=== PATIENT | male | born 1985 | race African-American/Black ===

== ENCOUNTER 2021-03-26 10:08 | Emergency (ER) | payer SELFPAY ==
[~2021-03-26] VITALS: Ht 177.8 cm; Wt 86.0 kg
[2021-03-26 10:09] VITALS: BP 140/87
[2021-03-26] MEDS ORDERED: HALOPERIDOL LACTATE 5MG/ML VIAL IM STA (10:33)
[2021-03-26] MEDS ORDERED: DIPHENHYDRAMINE 50MG/ML VIAL IM STA (10:33)
[2021-03-26] MEDS ORDERED: LORAZEPAM 2MG/ML CPJ IM STA (10:33)
[2021-03-26 11:38] LABS: BASOPHILS % 0.2 % (0.0-2.0); EOSINOPHILS % 1.2 % (0.0-5.0); HEMATOCRIT. 45.4 % (42.0-52.0); HEMOGLOBIN. 15.4 g/dL (14.0-18.0); LYMPHOCYTES % 18.6 % (20.0-50.0); MEAN CORPUSCULAR HEMOGLOBIN 30.9 pg (28.0-32.0); MEAN CORPUSCULAR VOLUME 91.2 fL (80.0-94.0); MEAN PLATELET VOLUME 9.4 fl (7.4-10.4); MONOCYTES % 5.1 % (2.0-8.0); NEUTROPHILS % 74.9 % (40.0-76.0); PLATELET 228 x1000/uL (130-400); RED BLOOD CELL COUNT 4.98 mill/uL (4.7-6.1)
[2021-03-26 11:51] LABS: CHLORIDE 106 mEq/L (98-107)
[2021-03-26 11:57] LABS: ETHANOL BLOOD < 10 mg/dL
== END 2021-03-26 12:44 ==
LOC: ER 10:08
DX: R45.1 Restlessness and agitation (principal); F91.8 Other conduct disorders; R07.81 Pleurodynia; F41.9 Anxiety disorder, unspecified; R56.9 Unspecified convulsions
CPT/HCPCS: 36415; 71045; 80053; 80307; 80320; 80329; 85025; 96372; 99284; J1200; J1630; J2060; G0480

== ENCOUNTER 2021-04-02 15:00 | Emergency (ER) | payer OTHER ==
[~2021-04-02] VITALS: Ht 172.7 cm; Wt 84.0 kg
[2021-04-02 15:03] VITALS: BP 122/75
[2021-04-02] MEDS ORDERED: LORAZEPAM 1MG TABLET PO STA (15:38)
[2021-04-02] MEDS ORDERED: LORAZEPAM 2MG/ML CPJ IM STA (15:43)
[2021-04-02] MEDS ORDERED: LORA-250 PO (16:52)
== END 2021-04-02 17:38 | disposition home or self-care (01) ==
LOC: ER 15:00
DX: F41.9 Anxiety disorder, unspecified (principal); G40.909 Epilepsy, unspecified, not intractable, without status epilepticus; Z88.6 Allergy status to analgesic agent
CPT/HCPCS: 93005; 96372; 99283; J2060

== ENCOUNTER 2021-12-22 11:34 | Emergency (ER) | payer OTHER ==
[~2021-12-22] VITALS: Ht 180.3 cm; Wt 91.0 kg
[~2021-12-22 11:34] MED LIST: LORA-250 PO
[2021-12-22 11:35] VITALS: BP 124/80
[2021-12-22] MEDS ORDERED: LEVETIRACETAM 100MG/ML ORAL SYR PO ONE (12:00)
[2021-12-22] MEDS ORDERED: LEVETIRACETAM 500MG/5ML CUP PO NR (12:15)
== END 2021-12-22 12:27 | disposition home or self-care (01) ==
LOC: ER 11:34
DX: G40.909 Epilepsy, unspecified, not intractable, without status epilepticus (principal); F41.9 Anxiety disorder, unspecified; Z91.14 Patient's other noncompliance with medication regimen; Z88.6 Allergy status to analgesic agent
CPT/HCPCS: 99283

== ENCOUNTER 2022-10-10 23:56 | Emergency (ER) | payer SELFPAY ==
[~2022-10-10] VITALS: Ht 175.3 cm; Wt 82.0 kg
[2022-10-10 23:59] VITALS: BP 126/73; PULSE 74; RESP 16; TEMP 98.3; O2SAT 96
[2022-10-11] MEDS ORDERED: LEVETIRACETAM 1000MG PREMIX 100 ML IV ONE (00:15)
[2022-10-11] MEDS ORDERED: OLANZAPINE 5MG TABLET PO ONE (00:15)
[2022-10-11] MEDS ORDERED: KEPP500 MT (03:12)
== END 2022-10-11 05:04 | disposition home or self-care (01) ==
LOC: ER 10-11 01:03
DX: R56.9 Unspecified convulsions (principal); F41.9 Anxiety disorder, unspecified; F20.9 Schizophrenia, unspecified
CPT/HCPCS: 99284; 96365; 73100; J1953

== ENCOUNTER 2022-10-11 05:15 | Emergency (ER) | payer MEDICAID ==
[~2022-10-11] VITALS: Ht 175.3 cm; Wt 83.0 kg
[~2022-10-11 05:15] MED LIST changes: +KEPP500 MT
[2022-10-11 05:21] VITALS: O2SAT 100
[2022-10-11 13:18] LABS: BASOPHILS % 0.5 % (0.0-2.0); EOSINOPHILS % 3.2 % (0.0-5.0); HEMATOCRIT. 46.7 % (42.0-52.0); HEMOGLOBIN. 15.5 g/dL (14.0-18.0); LYMPHOCYTES % 47.9 % (20.0-50.0); MEAN CORPUSCULAR HEMOGLOBIN 30.5 pg (28.0-32.0); MEAN CORPUSCULAR HGB CONC 33.2 g/dL (31.0-37.0); MEAN CORPUSCULAR VOLUME 91.6 fL (80.0-94.0); MEAN PLATELET VOLUME 9.4 fl (7.4-10.4); MONOCYTES % 8.8 % (2.0-8.0); NEUTROPHILS % 39.6 % (40.0-76.0); PLATELET 224 x1000/uL (130-400); RED CELL DISTRIBUTION WIDTH 13.5 % (11.6-14.6); WHITE BLOOD COUNT 4.8 x1000/uL (4.5-11.0)
[2022-10-11 13:21] LABS: CHLORIDE 107 mEq/L (98-107); INDEX HEMOLYSI 1 (1-3); INDEX ICTERIC 1 (1-4); INDEX LIPEMIC 1 (1-3); SODIUM 139 mEq/L (136-145)
[2022-10-11 13:23] LABS: CALCIUM 8.8 mg/dL (8.5-10.1)
[2022-10-11 13:28] LABS: ACETAMINOPHEN < 2 ug/mL (10-30); ALANINE AMINOTRANSFERASE 18 IU/L (13-61); ALBUMIN 3.9 g/dL (3.4-5.0); ASPARTATE AMINOTRANSFERASE 5 IU/L (15-37); BILIRUBIN TOTAL 0.3 mg/dL (0.1-1.0); CARBON DIOXIDE 29 mEq/L (21-32); ETHANOL BLOOD < 10 mg/dL (-10); UREA NITROGEN BLOOD 14 mg/dL (7-21)
[2022-10-11 15:29] LABS: GLUCOSE 87 mg/dL (70-105)
[2022-10-11 19:02] LABS: *AMPHETAMINES SCREEN URINE NEGATIVE (NEGATIVE); *BARBITURATES SCREEN URINE NEGATIVE (NEGATIVE); *BENZODIAZEPINES SCREEN URINE NEGATIVE (NEGATIVE); *COCAINE SCREEN URINE NEGATIVE (NEGATIVE); CANNABINOID URINE SCREEN NEGATIVE (NEGATIVE); ECSTASY MDMA SCREEN URINE NEGATIVE (NEGATIVE); METHADONE URINE SCREEN NEGATIVE (NEGATIVE); OPIATES URINE SCREEN NEGATIVE (NEGATIVE); PHENCYCLIDINE URINE SCREEN NEGATIVE (NEGATIVE)
[2022-10-11] MEDS: LEVETIRACETAM 250MG TABLET PO SCH (21:40)
[2022-10-12 09:00] VITALS: BP 118/74; PULSE 73; RESP 18; TEMP 98.2
[2022-10-12] MEDS: LEVETIRACETAM 250MG TABLET PO SCH (09:00)
== END 2022-10-12 12:50 | disposition home or self-care (01) ==
LOC: ER 05:15
DX: R45.851 Suicidal ideations (principal); F41.9 Anxiety disorder, unspecified; F20.9 Schizophrenia, unspecified; F17.200 Nicotine dependence, unspecified, uncomplicated; Z20.822 Contact with and (suspected) exposure to COVID-19
CPT/HCPCS: 80053; 80305; 80307; 80329; 80320; 85025; 36415; 99285; 87426; C9803; G0480

== ENCOUNTER 2024-01-14 10:10 | Emergency (ER) | payer OTHER, MEDICAID ==
[~2024-01-14] VITALS: Ht 182.9 cm; Wt 100.0 kg
[2024-01-14 10:13] VITALS: O2SAT 100
[2024-01-14] MEDS ORDERED: METHOCARBAMOL 750MG TABLET PO SCH (10:45)
[2024-01-14] MEDS: ACETAMINOPHEN 325MG TABLET PO ONE (10:57)
[2024-01-14] MEDS: METHOCARBAMOL 500MG TABLET PO SCH (10:57)
[2024-01-14] MEDS: LIDOCAINE 5% PATCH TOP SCH (10:58)
[2024-01-14] MEDS ORDERED: LIDO700A15 TP (11:41)
[2024-01-14] MEDS ORDERED: TOPUD PO (11:41)
[2024-01-14] MEDS ORDERED: METH-653 MT (11:41)
[2024-01-14] MEDS ORDERED: KEPP500 MT (11:41)
[2024-01-14 11:47] VITALS: BP 111/66; PULSE 87; RESP 16; TEMP 37.05852; O2SAT 100
[2024-01-14] MEDS: LEVETIRACETAM 500MG TABLET PO ONE (11:48)
[2024-01-14] MEDS: DIAZEPAM 2 MG TABLET PO ONE (11:48)
== END 2024-01-14 11:50 ==
LOC: ER 10:10
DX: M47.812 Spondylosis without myelopathy or radiculopathy, cervical region (principal); F41.9 Anxiety disorder, unspecified; F20.9 Schizophrenia, unspecified; F15.10 Other stimulant abuse, uncomplicated; Z87.891 Personal history of nicotine dependence; Z88.6 Allergy status to analgesic agent; Y04.0XXA Assault by unarmed brawl or fight, initial encounter; Y93.89 Activity, other specified; Y92.89 Other specified places as the place of occurrence of the external cause; Y99.8 Other external cause status
CPT/HCPCS: 71045; 72040; 99284

== ENCOUNTER 2024-01-15 14:03 | Emergency (ER) | payer MEDICAID, OTHER ==
[~2024-01-15] VITALS: Ht 172.7 cm; Wt 91.0 kg
[~2024-01-15 14:03] MED LIST changes: +LIDO700A15 TP; +METH-653 MT; +TOPUD PO
[2024-01-15 14:09] VITALS: O2SAT 90
[2024-01-15 17:00] VITALS: BP 125/80; PULSE 80; RESP 14; TEMP 36.44736; O2SAT 95
[2024-01-15 17:41] LABS: CHLORIDE 107 mEq/L (98-107); POTASSIUM 3.5 mEq/L (3.5-5.1); SODIUM 137 mEq/L (136-145)
[2024-01-15 17:42] LABS: CALCIUM 9.5 mg/dL (8.7-10.4); CARBON DIOXIDE 25 mEq/L (21-32)
[2024-01-15 17:44] LABS: BASOPHILS % 0.5 % (0.0-2.0); HEMATOCRIT. 46.2 % (42.0-52.0); HEMOGLOBIN. 15.3 g/dL (14.0-18.0); LYMPHOCYTES % 40.4 % (20.0-50.0); MEAN CORPUSCULAR HEMOGLOBIN 30.8 pg (28.0-32.0); MEAN CORPUSCULAR HGB CONC 33.1 g/dL (31.0-37.0); MEAN CORPUSCULAR VOLUME 93.3 fL (80.0-94.0); MEAN PLATELET VOLUME 9.4 fl (7.4-10.4); MONOCYTES % 7.9 % (2.0-8.0); NEUTROPHILS % 49.2 % (40.0-76.0); PLATELET 248 x1000/uL (130-400); RED BLOOD CELL COUNT 4.95 mill/uL (4.7-6.1); RED CELL DISTRIBUTION WIDTH 13.5 % (11.6-14.6); WHITE BLOOD COUNT 6.4 x1000/uL (4.5-11.0)
[2024-01-15 17:47] LABS: GLUCOSE 72 mg/dL (70-105); UREA NITROGEN BLOOD 12 mg/dL (9-23)
[2024-01-15 17:49] LABS: ACETAMINOPHEN 3 ug/mL (10-30)
[2024-01-15 17:51] LABS: ETHANOL BLOOD < 10 mg/dL (<10)
[2024-01-15] MEDS: LEVETIRACETAM 500MG PREMIX 100 ML IV ONE (18:39)
[2024-01-15] MEDS: LEVETIRACETAM 500MG TABLET PO ONE (19:01)
== END 2024-01-15 19:24 ==
LOC: ER 14:30
DX: G40.909 Epilepsy, unspecified, not intractable, without status epilepticus (principal); F41.9 Anxiety disorder, unspecified; F15.10 Other stimulant abuse, uncomplicated; Z88.6 Allergy status to analgesic agent; Z91.148 Patient's other noncompliance with medication regimen for other reason
CPT/HCPCS: 80048; 80307; 80329; 80320; 85025; 36415; 70450; 99284; Z7610; G0480

== ENCOUNTER 2024-03-20 14:59 | Emergency (ER) | payer MEDICAID, OTHER ==
[~2024-03-20] VITALS: Ht 185.4 cm; Wt 80.0 kg
[2024-03-20 15:01] VITALS: BP 117/79; PULSE 69; RESP 18; TEMP 36.9; O2SAT 97
[2024-03-20] MEDS: NITROFURANTOIN 100MG M/M CAPSULE PO ONE (17:11)
[2024-03-20 17:38] LABS: CLARITY URINE CLEAR (CLEAR); COLOR URINE YELLOW (YELLOW); GLUCOSE URINE NEGATIVE (NEGATIVE); KETONES URINE NEGATIVE (NEGATIVE); LEUKOCYTE ESTERASE URINE NEGATIVE (NEGATIVE); NITRITE URINE NEGATIVE (NEGATIVE); OCCULT BLOOD URINE NEGATIVE (NEGATIVE); PROTEIN URINE NEGATIVE (NEGATIVE); UROBILINOGEN URINE 0.2 E.U./dL (0.2-1.0)
[2024-03-20 17:53] LABS: *AMPHETAMINES SCREEN URINE PRESUMPTIVE POSITIVE (NEGATIVE); *BARBITURATES SCREEN URINE NEGATIVE (NEGATIVE); *BENZODIAZEPINES SCREEN URINE NEGATIVE (NEGATIVE); *COCAINE SCREEN URINE NEGATIVE (NEGATIVE); METHADONE URINE SCREEN NEGATIVE (NEGATIVE); OPIATES URINE SCREEN NEGATIVE (NEGATIVE); PHENCYCLIDINE URINE SCREEN NEGATIVE (NEGATIVE)
[2024-03-20 17:54] LABS: CANNABINOID URINE SCREEN PRESUMPTIVE POSITIVE (NEGATIVE); ECSTASY MDMA SCREEN URINE NEGATIVE (NEGATIVE)
[2024-03-20 18:32] LABS: EOSINOPHILS % 2.4 % (0.0-5.0); HEMATOCRIT. 43.5 % (42.0-52.0); HEMOGLOBIN. 14.4 g/dL (14.0-18.0); LYMPHOCYTES % 32.1 % (20.0-50.0); MEAN CORPUSCULAR HEMOGLOBIN 31.2 pg (28.0-32.0); MEAN CORPUSCULAR HGB CONC 33.1 g/dL (31.0-37.0); MEAN CORPUSCULAR VOLUME 94.3 fL (80.0-94.0); MONOCYTES % 7.3 % (2.0-8.0); NEUTROPHILS % 57.2 % (40.0-76.0); PLATELET 215 x1000/uL (130-400); RED BLOOD CELL COUNT 4.61 mill/uL (4.7-6.1); RED CELL DISTRIBUTION WIDTH 13.9 % (11.6-14.6); WHITE BLOOD COUNT 6.3 x1000/uL (4.5-11.0)
[2024-03-20 19:03] LABS: CHLORIDE 109 mEq/L (98-107); POTASSIUM 3.8 mEq/L (3.5-5.1); SODIUM 140 mEq/L (136-145)
[2024-03-20 19:04] LABS: CALCIUM 8.8 mg/dL (8.7-10.4); CARBON DIOXIDE 27 mEq/L (21-32)
[2024-03-20 19:09] LABS: CREATININE 0.9 mg/dL (0.6-1.3); GLUCOSE 99 mg/dL (70-105); UREA NITROGEN BLOOD 10 mg/dL (9-23)
[2024-03-20 19:16] LABS: ETHANOL BLOOD < 10 mg/dL (<10)
[2024-03-20 19:23] VITALS: TEMP 98.5
[2024-03-20] MEDS: ACETAMINOPHEN 325MG TABLET PO ONE (19:23)
[2024-03-20] MEDS ORDERED: LEVETIRACETAM 500MG TABLET PO ONE (20:00)
[2024-03-20] MEDS ORDERED: LEVETIRACETAM 1000MG PREMIX 100 ML IV ONE (20:00)
== END 2024-03-20 20:06 ==
LOC: ER 14:59
DX: R06.02 Shortness of breath (principal); F20.9 Schizophrenia, unspecified; F41.9 Anxiety disorder, unspecified; Z88.6 Allergy status to analgesic agent; Z79.899 Other long term (current) drug therapy
CPT/HCPCS: 80305; 80048; 81003; 80320; 85025; 36415; 99283; Z7610; G0480

== ENCOUNTER 2024-08-12 21:57 | Emergency (ER) | payer MEDICAID ==
[~2024-08-12] VITALS: Ht 182.9 cm; Wt 82.0 kg
[~2024-08-12 21:57] MED LIST changes: +LIDO-53 TP; -LIDO700A15 TP
[2024-08-12 22:05] VITALS: O2SAT 99
[2024-08-12 23:22] LABS: BASOPHILS % 0.6 % (0.0-2.0); EOSINOPHILS % 1.4 % (0.0-5.0); HEMATOCRIT. 43.8 % (42.0-52.0); HEMOGLOBIN. 14.4 g/dL (14.0-18.0); LYMPHOCYTES % 30.6 % (20.0-50.0); MEAN PLATELET VOLUME 9.2 fl (7.4-10.4); MONOCYTES % 7.6 % (2.0-8.0); NEUTROPHILS % 59.8 % (40.0-76.0); PLATELET 252 x1000/uL (130-400); RED BLOOD CELL COUNT 4.87 mill/uL (4.7-6.1); RED CELL DISTRIBUTION WIDTH 13.9 % (11.6-14.6)
[2024-08-12 23:31] LABS: CREATININE 1.1 mg/dL (0.6-1.3)
[2024-08-12 23:32] LABS: ETHANOL BLOOD < 10 mg/dL (<10); TROPONIN I HIGH SENSITIVITY < 4 ng/L (3.0-53); UREA NITROGEN BLOOD 10 mg/dL (9-23)
[2024-08-12 23:33] LABS: ASPARTATE AMINOTRANSFERASE 9 IU/L (<34)
[2024-08-12 23:34] LABS: BILIRUBIN DIRECT 0.2 mg/dL (<=3.0); BILIRUBIN TOTAL 0.6 mg/dL (0.1-1.0); PROTEIN TOTAL 7.1 g/dL (6.0-8.3)
[2024-08-13] MEDS: ACETAMINOPHEN 325MG TABLET PO NR (01:02)
[2024-08-13] MEDS: POTASSIUM CHLORIDE 20MEQ/PACKET PO NR (01:02)
[2024-08-13 09:12] LABS: CLARITY URINE CLEAR (CLEAR); COLOR URINE YELLOW (YELLOW); GLUCOSE URINE NEGATIVE (NEGATIVE); KETONES URINE TRACE (NEGATIVE); LEUKOCYTE ESTERASE URINE NEGATIVE (NEGATIVE); NITRITE URINE NEGATIVE (NEGATIVE); OCCULT BLOOD URINE NEGATIVE (NEGATIVE); PH URINE 6.5 (4.5-8.0); PROTEIN URINE TRACE (NEGATIVE); SPECIFIC GRAVITY URINE 1.021 (1.005-1.030); UROBILINOGEN URINE 1.0 E.U./dL (0.2-1.0)
[2024-08-13 09:15] LABS: MUCUS URINE 1+ /lpf (NONE/TRACE)
[2024-08-13 09:16] LABS: BACTERIA URINE TRACE; SQUAMOUS EPITHELIAL CELL URINE RARE /lpf (RARE/1+)
[2024-08-13 09:17] LABS: AMORPHOUS SEDIMENT URINE 1+ /lpf; RBC URINE NONE SEEN /hpf (0-2); WBC URINE 0-2 /hpf (0-2)
[2024-08-13] MEDS: LEVETIRACETAM 250MG TABLET PO SCH (11:50)
[2024-08-13 12:40] LABS: *AMPHETAMINES SCREEN URINE PRESUMPTIVE POSITIVE (NEGATIVE); *BARBITURATES SCREEN URINE NEGATIVE (NEGATIVE); *BENZODIAZEPINES SCREEN URINE NEGATIVE (NEGATIVE); *COCAINE SCREEN URINE NEGATIVE (NEGATIVE); METHADONE URINE SCREEN NEGATIVE (NEGATIVE)
[2024-08-13 12:41] LABS: CANNABINOID URINE SCREEN PRESUMPTIVE POSITIVE (NEGATIVE); ECSTASY MDMA SCREEN URINE CONF.TEST INDICATED (NEGATIVE); OPIATES URINE SCREEN NEGATIVE (NEGATIVE); PHENCYCLIDINE URINE SCREEN NEGATIVE (NEGATIVE)
[2024-08-13 14:37] VITALS: BP 119/78; PULSE 95; RESP 18; TEMP 36.8; O2SAT 99
== END 2024-08-13 14:58 | disposition home or self-care (01) ==
LOC: ER 21:57
DX: R45.851 Suicidal ideations (principal); R07.89 Other chest pain; E87.6 Hypokalemia; F17.200 Nicotine dependence, unspecified, uncomplicated; F12.90 Cannabis use, unspecified, uncomplicated; R56.9 Unspecified convulsions; Z88.6 Allergy status to analgesic agent; Z79.899 Other long term (current) drug therapy
CPT/HCPCS: 80076; 80048; 80307; 80329; 80320; 83880; 85025; 84484; 36415; 71045; 93005; 99285; 80305; 81003; Z7610 ×2; G0480

== ENCOUNTER 2024-08-16 14:07 | Emergency (ER) | payer MEDICAID ==
[~2024-08-16] VITALS: Ht 175.3 cm; Wt 85.0 kg
[2024-08-16 14:19] VITALS: O2SAT 99
[2024-08-16 14:55] LABS: BASOPHILS % 0.7 % (0.0-2.0); EOSINOPHILS % 3.1 % (0.0-5.0); HEMATOCRIT. 44.0 % (42.0-52.0); HEMOGLOBIN. 14.5 g/dL (14.0-18.0); LYMPHOCYTES % 39.0 % (20.0-50.0); MEAN PLATELET VOLUME 9.4 fl (7.4-10.4); MONOCYTES % 6.7 % (2.0-8.0); NEUTROPHILS % 50.5 % (40.0-76.0); PLATELET 261 x1000/uL (130-400); RED BLOOD CELL COUNT 4.85 mill/uL (4.7-6.1); RED CELL DISTRIBUTION WIDTH 14.0 % (11.6-14.6)
[2024-08-16 15:10] LABS: CLARITY URINE CLEAR (CLEAR); COLOR URINE YELLOW (YELLOW); GLUCOSE URINE NEGATIVE (NEGATIVE); KETONES URINE TRACE (NEGATIVE); LEUKOCYTE ESTERASE URINE NEGATIVE (NEGATIVE); NITRITE URINE NEGATIVE (NEGATIVE); OCCULT BLOOD URINE NEGATIVE (NEGATIVE); PH URINE 6.5 (4.5-8.0); PROTEIN URINE TRACE (NEGATIVE); SPECIFIC GRAVITY URINE 1.027 (1.005-1.030); UROBILINOGEN URINE 1.0 E.U./dL (0.2-1.0)
[2024-08-16 15:17] LABS: CREATININE 1.0 mg/dL (0.6-1.3); UREA NITROGEN BLOOD 12 mg/dL (9-23)
[2024-08-16 15:18] LABS: ETHANOL BLOOD < 10 mg/dL (<10)
[2024-08-16 15:25] LABS: *AMPHETAMINES SCREEN URINE PRESUMPTIVE POSITIVE (NEGATIVE); *BENZODIAZEPINES SCREEN URINE NEGATIVE (NEGATIVE)
[2024-08-16 15:26] LABS: *BARBITURATES SCREEN URINE NEGATIVE (NEGATIVE); *COCAINE SCREEN URINE NEGATIVE (NEGATIVE); CANNABINOID URINE SCREEN PRESUMPTIVE POSITIVE (NEGATIVE); ECSTASY MDMA SCREEN URINE CONF.TEST INDICATED (NEGATIVE); METHADONE URINE SCREEN NEGATIVE (NEGATIVE); OPIATES URINE SCREEN NEGATIVE (NEGATIVE); PHENCYCLIDINE URINE SCREEN NEGATIVE (NEGATIVE)
[2024-08-16 16:03] LABS: BACTERIA URINE 1+; CALCIUM OXALATE CRYSTALS URINE 1+ /lpf; RBC URINE 0-2 /hpf (0-2); SQUAMOUS EPITHELIAL CELL URINE FEW /lpf (RARE/1+); WBC URINE 0-2 /hpf (0-2)
[2024-08-16 16:04] LABS: MUCUS URINE 1+ /lpf (NONE/TRACE)
[2024-08-16] MEDS: ZIPRASIDONE MESYLATE 20MG/VIAL IM ONE (21:25)
[2024-08-16] MEDS: LEVETIRACETAM 500MG TABLET PO SCH (21:25)
[2024-08-17] MEDS: OLANZAPINE 5MG TABLET PO SCH (11:45)
[2024-08-17 16:00] VITALS: TEMP 37
[2024-08-17 17:16] VITALS: BP 122/79; PULSE 72; RESP 18; O2SAT 100
== END 2024-08-17 17:30 ==
LOC: ER 14:07
DX: R45.851 Suicidal ideations (principal); F14.10 Cocaine abuse, uncomplicated; F12.10 Cannabis abuse, uncomplicated; F15.10 Other stimulant abuse, uncomplicated; Z20.822 Contact with and (suspected) exposure to COVID-19; Z88.6 Allergy status to analgesic agent; Z79.899 Other long term (current) drug therapy; Z86.59 Personal history of other mental and behavioral disorders
CPT/HCPCS: 80305; 80048; 81003; 80307; 80329; 80320; 85025; 36415; 96372; 99285; 87426; J3486; Z7610 ×4; A4606; G0480

== ENCOUNTER 2024-12-11 17:36 | Emergency (ER) | payer MEDICAID ==
[~2024-12-11] VITALS: Ht 172.7 cm; Wt 90.0 kg
[2024-12-11 17:56] VITALS: O2SAT 100
[2024-12-11 19:46] LABS: *AMPHETAMINES SCREEN URINE NEGATIVE (NEGATIVE); *BARBITURATES SCREEN URINE NEGATIVE (NEGATIVE); *BENZODIAZEPINES SCREEN URINE NEGATIVE (NEGATIVE); *COCAINE SCREEN URINE NEGATIVE (NEGATIVE)
[2024-12-11 19:47] LABS: CANNABINOID URINE SCREEN PRESUMPTIVE POSITIVE (NEGATIVE); ECSTASY MDMA SCREEN URINE NEGATIVE (NEGATIVE); METHADONE URINE SCREEN NEGATIVE (NEGATIVE); OPIATES URINE SCREEN NEGATIVE (NEGATIVE); PHENCYCLIDINE URINE SCREEN NEGATIVE (NEGATIVE)
[2024-12-11 20:54] LABS: BASOPHILS % 1.0 % (0.0-2.0); EOSINOPHILS % 3.3 % (0.0-5.0); HEMATOCRIT. 44.9 % (42.0-52.0); HEMOGLOBIN. 14.6 g/dL (14.0-18.0); LYMPHOCYTES % 40.6 % (20.0-50.0); MEAN PLATELET VOLUME 10.2 fl (7.4-10.4); MONOCYTES % 8.0 % (2.0-8.0); NEUTROPHILS % 47.1 % (40.0-76.0); PLATELET 206 x1000/uL (130-400); RED BLOOD CELL COUNT 4.95 mill/uL (4.7-6.1); RED CELL DISTRIBUTION WIDTH 14.5 % (11.6-14.6)
[2024-12-11 21:10] LABS: CREATININE 0.9 mg/dL (0.6-1.3); UREA NITROGEN BLOOD 8 mg/dL (9-23)
[2024-12-12 06:13] VITALS: BP 110/67; PULSE 72; RESP 18; TEMP 36.7; O2SAT 99
[2024-12-12] MEDS ORDERED: LEVETIRACETAM 500MG TABLET PO SCH (09:00)
== END 2024-12-12 06:31 ==
LOC: ER 17:36
DX: R45.851 Suicidal ideations (principal); F32.A Depression, unspecified; F20.9 Schizophrenia, unspecified; F41.9 Anxiety disorder, unspecified; F12.90 Cannabis use, unspecified, uncomplicated; F15.90 Other stimulant use, unspecified, uncomplicated; Z79.899 Other long term (current) drug therapy; Z20.822 Contact with and (suspected) exposure to COVID-19; Z88.6 Allergy status to analgesic agent
CPT/HCPCS: 36415; 80048; 80305; 80307; 80320; 80329; 85025; 87426; 93005; 99285; G0480